=== PATIENT | male | born 1995 | race Caucasian/White ===

== ENCOUNTER 2017-08-07 17:10 | Emergency (ER) | payer BC, OTHER ==
[2017-08-07 17:35] VITALS: BP 126/62
[2017-08-07] MEDS ORDERED: Lidocaine 2% PF * 5 ML VIAL INJ ONE (17:43)
[2017-08-07] MEDS ORDERED: Tetan/Diph/Pertus SYR(Tdap)* 0.5 ML SYR(BOOSTRIX) use SYR IM ONE (18:25)
--- NOTE | 2017-08-07 18:55 | UC ---
Skin Complaint HPI - HPI Summary HPI Summary: FIVE DAYS OF LUMP BEHIND LEFT EAR. NO KNOWN HISTORY OF MRSA. GETS FREQUENT ABSCESSES. NO FEVER. NO DRAINAGE - History of Current Complaint Chief Complaint: UCSkin Time Seen by Provider: 08/07/17 17:38 Stated Complaint: CYST ON EAR Hx Obtained From: Patient Onset/Duration: Gradual Onset, Lasting Days, Still Present, Worse Since - PROGRESSIVE Skin Exposure Onset/Duration: Days Ago Timing: Constant Onset Severity: Mild Current Severity: Moderate Pain Intensity: 3 Pain Scale Used: 0-10 Numeric Location: Discrete Character: Swelling, Redness, Raised, Painful Aggravating Factor(s): Touch Alleviating Factor(s): Nothing Associated Signs & Symptoms: Positive: Tenderness - Allergy/Home Medications Allergies/Adverse Reactions: Allergies Allergy/AdvReac Type Severity Reaction Status Date / Time No Known Allergies Allergy Verified 08/07/17 17:34 Home Medications: Home Medications Epinephrine [Epipen 2-Charlie] 0.3 mg IM DAILY PRN 08/07/17 [History Confirmed 08/07] Review of Systems Constitutional: Negative Skin: Other - ABSCESS BELOW LEFT POSTERIOR EAR Eyes: Negative ENT: Negative Respiratory: Negative Cardiovascular: Negative Gastrointestinal: Negative Genitourinary: Negative Motor: Negative Neurovascular: Negative Musculoskeletal: Negative Neurological: Negative Psychological: Negative Is Patient Immunocompromised?: No All Other Systems Reviewed And Are Negative: Yes PMH/Surg Hx/FS Hx/Imm Hx Previously Healthy: Yes - Surgical History Surgical History: None - Family History Known Family History: Positive: None Negative: Diabetes - Social History Occupation: Employed Full-time Lives: With Family Alcohol Use: Occasionally Substance Use Type: None Smoking Status (MU): Never Smoked Tobacco Type: Cigarettes Amount Used/How Often: social smoker - once in a blue henley - Immunization History Most Recent Influenza Vaccination: none Physical Exam Triage Information Reviewed: Yes Appearance: Well-Appearing, No Pain Distress, Well-Nourished Vital Signs: Initial Vital Signs Temp 98.4 F 08/07/17 17:30 Pulse 57 08/07/17 17:30 Resp 16 08/07/17 17:30 BP 126/62 08/07/17 17:30 Pulse Ox 100 08/07/17 17:30 Vital Signs Reviewed: Yes Eye Exam: Normal ENT Exam: Normal ENT: Positive: Normal ENT inspection Dental Exam: Normal Neck exam: Normal Neck: Positive: Supple, Nontender, No Lymphadenopathy Respiratory Exam: Normal Respiratory: Positive: Chest non-tender, Lungs clear, Normal breath sounds, No respiratory distress Cardiovascular Exam: Normal Cardiovascular: Positive: RRR, No Murmur, Pulses Normal Abdominal Exam: Normal Musculoskeletal Exam: Normal Musculoskeletal: Positive: Strength Intact, ROM Intact Neurological Exam: Normal Psychological Exam: Normal Skin: Positive: Other - 1.5 CM X 1.5CM ABSCESS INFERIO-POSTERIOR TO LEFT EAR - Additional Comments INCISION AND DRAINAGE OF 1.5 CM X 1.5CM ABSCESS INFERIO-POSTERIOR TO LEFT EAR. 2 % LIDOCANE FIELD BLOCK WITH 0.5 CM INCISION. FLUID EXPRESSED PACKED WITH 4CM OF IODIFORM GAUZE. PATIENT TOLERATED PROCEDURE WELL. Course/Dx - Differential Diagnoses - Skin Complaint Differential Diagnoses: Abscess, Cellulitis - Diagnoses Provider Diagnoses: 1.5 CM X 1.5CM ABSCESS INFERIO-POSTERIOR TO LEFT EAR WITH INCISION AND DRAINAGE Discharge - Discharge Plan Condition: Stable Disposition: HOME Prescriptions: Sulfamethox/Trimethoprim DS* [Bactrim DS 800/160 TAB*] 1 tab PO BID #20 tab Patient Education Materials: Abscess (ED), Incision and Drainage (ED) Referrals: Joss Wilson MD [Primary Care Provider] - Images Head: 1 - 1.5 CM X 1.5CM ABSCESS INFERIO-POSTERIOR TO LEFT EAR
== END 2017-08-07 18:41 | disposition home or self-care (01) ==
LOC: UCEAST 17:10
DX: H60.02 Abscess of left external ear (principal); Z23 Encounter for immunization; Z72.0 Tobacco use
CPT/HCPCS: 10060; 69000; 87070; 87077; 87205; 87640; 87641; 90471; 90715; 99212; G0463